=== PATIENT | female | born 1945 | race Caucasian/White ===

== ENCOUNTER 2023-02-13 07:52 | Outpatient (CLI) | payer MEDICARE | END 2023-02-13 07:53 | disposition home or self-care (01) | LOC: CSHMAMMO 07:52 | PROVIDERS: ATTEND Physician Assistant | DX: M85.88 Other specified disorders of bone density and structure, other site (principal); M85.851 Other specified disorders of bone density and structure, right thigh; M85.852 Other specified disorders of bone density and structure, left thigh; Z78.0 Asymptomatic menopausal state | CPT/HCPCS: 77080 ==